=== PATIENT | female | born 1955 | race Caucasian/White ===

== ENCOUNTER → 2024-04-12 09:44 | Outpatient (CLI) | payer OTHER, SELFPAY ==
--- NOTE | 2024-04-12 18:16 | DI.NM.S_ITS ---
DATE OF SERVICE: 04/12/2024 EXERCISE PERFUSION STUDY INDICATIONS: Coronary artery calcium. Exercise perfusion study is being done for CAD risk stratification. RADIOPHARMACEUTICAL: 25.2 mCi technetium-99m Myoview IV was injected at stress and 12.1 mCi technetium-99m Myoview IV was injected at rest. CARDIAC STRESS: The patient underwent exercise perfusion study under the supervision of an attending staff. The patient walked on Sonido protocol for 4 minutes and 59 seconds, achieved maximum heart rate of 142 which was 92% of target heart rate. Normal hemodynamic response. Resting blood pressure 130/80 and peak blood pressure 200/90 mmHg. 7 METs of workload. PARADISE positive 14%. Baseline rhythm sinus. During early exercise, patient had frequent PVCs including ventricular bigeminy without any ventricular tachycardia. At peak exercise, PVCs got diminished. Reappeared in recovery without any ventricular tachycardia. No obvious ischemic EKG changes. No chest pain. The patient had shortness of breath. RAW DATA: There is increased subdiaphragmatic activity. GATED STUDY: Resting LV ejection fraction 77 and stress LV ejection fraction 89% without any obvious wall motion abnormalities. Resting end- diastolic volume 62 mL. TID ratio 1.08, which is within normal limits. Lung/heart ratio 0.21, which is within normal limits. MYOCARDIAL PERFUSION SCAN: Stress supine, resting supine, and stress prone images were compared to each other. Stress supine and resting supine images revealed small size, mildly decreased perfusion of basal anterior wall which got completely resolved during stress prone images suggestive of tissue attenuation artifact. No convincing ischemia or infarction pattern seen during stress prone images. CONCLUSION: This is a normal myocardial perfusion study with evidence of breast tissue attenuation artifact which got resolved during stress prone images. Summed resting score 0 and summed stress score 0. Diminished exercise tolerance. No anginal symptoms. Frequent PVCs in early part of exercise, which got diminished at peak exercise and re- appeared in recovery with bigeminy pattern. No ventricular tachycardia. LV function is preserved. As far as perfusion scan is concerned, this is an overall low-risk myocardial perfusion scan. Correlate clinically. Shelby Barbour - ZULEYKA/[place] doc#: [id number]/job#: [id number] dd: 04/12/2024 16:35:00 dt: 04/12/2024 18:04:00 DICTATING MD/COPIES TO: Erwin Trujillo MD COPIES MNE: CHERYLE;
== END ==
LOC: NUCM 09:47
PROVIDERS: PCP Internal Medicine; Referring Provider Internal Medicine Cardiovascular Disease; Visit Provider Internal Medicine Cardiovascular Disease
DX: I25.10 Atherosclerotic heart disease of native coronary artery without angina pectoris (principal); R94.31 Abnormal electrocardiogram [ECG] [EKG]
CPT/HCPCS: 78452; 93017; A9502